=== PATIENT | male | born 2000 | race Caucasian/White ===

== ENCOUNTER 2023-01-28 11:17 | Outpatient (REF) | payer OTHER, SELFPAY | END 2023-01-28 11:18 | disposition home or self-care (01) | LOC: HO.HMGCX 11:17 | PROVIDERS: PCP Internal Medicine; Visit Provider Internal Medicine | DX: S93.401A Sprain of unspecified ligament of right ankle, initial encounter (principal); X58.XXXA Exposure to other specified factors, initial encounter; Y93.9 Activity, unspecified; Y92.9 Unspecified place or not applicable; Y99.9 Unspecified external cause status | CPT/HCPCS: 73610 ==

== ENCOUNTER 2023-08-01 15:48 | Outpatient (AMB) | payer OTHER, SELFPAY ==
--- NOTE | 2023-08-01 15:56 | MHC.PC.OV ---
Vital Signs 08/01/23 15:59 Height 5 ft 10 in Weight 269 lb BMI 38.6 BP 112/80 Blood Pressure Location Rt brachial Position Sitting Pulse 86 Pulse Source Pulse Oximeter Pulse Oximetry (%) 96 Oxygen Delivery Method Room Air Intake Visit Reasons: Annual PE Intake Note: Patient here for physical exam and would like to talk about ADHD which he was previously medicated for through a virtual psychiatrist with [facility] and would like to get on that again. Allergies No Known Allergies Allergy (Verified 08/01/23 16:01) Tobacco use date assessed: 08/01/23 Dental Screening Dental Screen Date: 08/01/23 Did you have a dental visit in the last 12 months?: Yes Did you have a dental problem in the last 6 months where you did not have access to dental care?: No Was dental information given to patient?: Patient has dentist HPI Annual PE HPI Details New pt is here for a PE. Will order labs. [facility] Surgical History History of lung surgery Family History Mother No problems noted. Father No problems noted. Social History Housing: House Alcohol intake: current Alcohol intake frequency: holidays/special occasions only Patient Tobacco Use Status: Never used Tobacco e-Cigarette/Vaping Use: Never Used service: No Current occupational status: employed Cognitive needs: No Hearing needs: No Vision needs: Yes Questionnaire PHQ-9 Over the last 2 weeks, how often have you been bothered by any of the following problems? 1. Little interest or pleasure in doing things: not at all 2. Feeling down, depressed, or hopeless: not at all 3. Trouble falling or staying asleep, or sleeping too much: not at all 4. Feeling tired or having little energy: several days 5. Poor appetite or overeating: not at all 6. Feeling bad about yourself - or that you are a failure or have let yourself or your family down: not at all 7. Trouble concentrating on things, such as reading the newspaper or watching television: nearly every day 8. Moving or speaking so slowly that other people could have noticed. Or the opposite - being so fidgety or restless that you have been moving around a lot more than usual: not at all 9. Thoughts that you would be better off or of hurting yourself in some way: not at all Total score: 4 Depression Screening Interpretation: Negative Depression Screening Done: Yes 47264 - PHQ-9 Billing: Yes Source: Developed by Drs. Armand Miller, Mayuri Candelario, Matt Roach and colleagues, with an educational buddy from [email or web address]. Thrive Questionnaire Date Thrive assessed: 01/30/21 I am a: Patient What is your living situation today?: I have a steady place to live Within the past 12 months, did the food you bought not last and you didn't have the money to get more?: Never true Within the past 12 months, did you worry whether your food would run out before you got money to buy more?: Never true Do you have trouble paying for medicines?: No Do you have trouble getting transportation to medical appointments?: No Do you have trouble paying your heating and electricity bill?: No Do you have trouble taking care of your child, family member or friend?: No Do you have trouble with day-to-day activities such as bathing, preparing meals, shopping, managing finances, etc.?: No Are you currently unemployed and looking for a job?: No Are you interested in more education?: No Currently or been in a relationship where the following occur: no concerns reported AUDIT C Alcohol Use Questionnaire (AUDIT-C) 1. How often do you have a drink containing alcohol?: 2-4 times a month 2. How many drinks containing alcohol do you have on a typical day when you are drinking?: 5 or 6 3. How often do you have six or more drinks on one occasion?: Less than monthly Total Score: 5 Score Reviewed/Action Taken: Yes BUSTER-7 AMB Questionnaire BUSTER-7 Date BUSTER - 7 assessed: 08/01/23 Feeling nervous, anxious, or on edge: 0 = Not at all Not being able to stop or control worryin = Not at all Worrying too much about different things: 0 = Not at all Trouble relaxin = Nearly every day Being so restless that it is hard to sit still: 3 = Nearly every day Becoming easily annoyed or irritable: 2 = More than half the days Feeling afraid as if something awful might happen: 0 = Not at all Total BUSTER-7 score (0-4 normal; 5-9 mild; 10-14 moderate; 15-21 severe): 8 Source: Developed by Drs. Armand Miller, Mayuri Candelario, Matt Roach and colleagues, with an educational buddy from [email or web address]. BUSTER-7 Assessment Billing BUSTER-7 Assessment Tool: BUSTER-7 Assessment 58735 Review of Systems Const Denies chills and Denies fever(s) Eyes Denies blurry vision ENT Denies vertigo, Denies dizziness and Denies sore throat Card Denies chest pain at rest, Denies chest pain with activity, Denies diaphoresis, Denies dyspnea and Denies dyspnea on exertion Resp Denies cough, Denies dyspnea, Denies dyspnea on exertion and Denies wheezing GI Denies abdominal pain, Denies melena, Denies hematochezia, Denies constipation, Denies diarrhea and Denies loose stools Denies hematuria Musc Denies numbness and Denies tingling Skin/Breast Denies lesions Neuro Denies vertigo, Denies dizziness, Denies numbness and Denies tingling Psych Denies anxiety, Denies depression, Denies homicidal ideation, Denies suicidal ideation and Denies other (substance abuse) Aller/Immun Denies wheezing Physical exam (Primary Care) Vital Signs: Last Vital Signs Pulse 86 08/01/23 15:59 BP 112/80 08/01/23 15:59 Pulse Ox 96 08/01/23 15:59 Oxygen Delivery Method Room Air 08/01/23 15:59 BMI result Body Mass Index 38.6 Tobacco/Smoking Status: Tobacco use Status Tobacco use date assessed 08/01/23 08/01/23 16:04 Patient Tobacco Use Status Never used Tobacco 08/01/23 15:59 e-Cigarette/Vaping Use Never Used 08/01/23 16:04 PHQ-9: PHQ-9 Score PHQ-9: Total score 4 08/01/23 16:18 Depression Screening Interpretation: Negative Thrive Assessment: Date of Thrive Assessment Date Thrive assessed 01/30/21 08/01/23 15:59 Currently or been in a relationship where the following occur: no concerns reported Const General: cooperative Nutritional Appearance: obese Orientation/consciousness: patient oriented x3 HENMT Head: Yes normal to inspection, Yes normocephalic and Yes atraumatic Ears: TM's normal bilaterally Eyes General: appearance normal, both eyes and all related structures Alignment and Position: alignment normal and position normal Neck Neck: Yes normal visual inspection and Yes no lymphadenopathy Thyroid: Thyroid normal Resp Effort & Inspection: normal respiratory effort Auscultation: clear to auscultation bilaterally Cardio Rate: regular rate Rhythm: regular rhythm Heart sounds: S1 normal heart sound present, S2 normal heart sound present and no murmurs GI Palpation (GI): Soft to palpation and nontender Auscultation: normal bowel sounds Male General Exam: Yes normal external exam Penis: normal penis Scrotum: scrotum normal, testes descended bilaterally and no inguinal hernias Testes: no testicular mass Skin Rashes: no rashes Neuro General: patient oriented x3, moves all extremities, no focal motor deficits and deep tendon reflexes 2+ bilaterally Romberg Test: Negative Psych Appearance: grossly normal Mental Status: mental status grossly normal Speech and movement: Normal speech and movement present Affect: normal affect Attitude: cooperative Thought process: Normal thought process present Thought content: Normal thought content present Insight: Good insight present (Psych) Judgement: Good judgement present (Psych) Assessment and Plan Assessment & Plan (1) Physical exam: Comment: 40 min reviewing chart eval pt and documenting Code(s): Z00.00 - Encounter for general adult medical examination without abnormal findings Plan: Labs ordered Plan The patient agreed to the use of a durable medical equipment repairer for this encounter. Scribed for LAY Gary by Roxy Harvey durable medical equipment repairer, on 08/01/2023 at 16:15 EST. Orders: Orders Complete Blood Count Auto Diff Today Z00.00 - Encounter for general adult medical examination without abnormal findings Comprehensive [place]. Panel Fast Today Z00.00 - Encounter for general adult medical examination without abnormal findings TSH reflex Free T4 Today Z00.00 - Encounter for general adult medical examination without abnormal findings UA CC w/rflx Micro + Cult Today Z00.00 - Encounter for general adult medical examination without abnormal findings Lipid Panel Today Z00.00 - Encounter for general adult medical examination without abnormal findings Coding Level of Care Code New Pt Prev Care 18-39yr(95724 Diagnoses Physical exam Z00.00 Additional Codes BUSTER-7 Assessment Billing - BUSTER-7 Assessment Tool: BUSTER-7 Assessment 97823 ([id number])
[2023-08-01 15:59] VITALS: BP 112/80; PULSE 86; O2SAT 96; BMI 38.6
== END 2023-08-01 16:28 | disposition home or self-care (01) ==
PROVIDERS: PCP Internal Medicine; Visit Provider Nurse Practitioner Family
DX: Z00.00 Encounter for general adult medical examination without abnormal findings (principal)
CPT/HCPCS: 99385

== ENCOUNTER 2023-08-16 06:01 | Outpatient (REF) | payer OTHER, SELFPAY ==
[2023-08-16 11:38] LABS: Appearance Urine Clear; Color Urine Yellow; Glucose Urine UA Negative (Negative); Leukocyte Esterase Urine Negative (Negative); Nitrite Urine Negative (Negative); Urine Blood Negative (Negative); Urine Ketones Negative (Negative); Urine Protein Negative (Neg-Trace)
[2023-08-16 11:44] LABS: MANUAL DIFF FLAG NO
[2023-08-16 11:57] LABS: Basophils Percent Auto 0.7 % (0-2); Eosinophils Absolute Auto 0.2 X10*3/uL (0.0-0.4); Eosinophils Percent Auto 2.9 % (0-4); Hematocrit 43.4 % (42.0-52.0); Hemoglobin 14.6 g/dl (14.0-18.0); Imm Gran Abs Auto 0.02 X10*3/uL (0.00-0.03); Imm Gran Pct Auto 0.3 % (0.0-0.4); Lymphocytes Absolute Auto 1.6 X10*3/uL (1.2-4.9); Lymphocytes Percent Auto 27.1 % (20-40); Mean Corpuscular HGB Conc 33.6 g/dl (31.0-36.0); Mean Corpuscular Hemoglobin 27.8 pg (27.0-33.0); Mean Corpuscular Volume 82.7 fL (80.0-98.0); Mean Platelet Volume 10.1 fL (9.4-12.4); Monocytes Absolute Auto 0.6 X10*3/uL (0.1-1.2); Monocytes Percent Auto 9.2 % (2-11); Neutrophils Absolute Auto 3.6 x10*3/uL (2.0-8.3); Neutrophils Percent Auto 59.8 % (45-73); Platelet Count 327 X10*3/uL (160-400); Red Blood Count 5.25 X10*6/uL (4.60-5.80); Red Cell Distribution Width 12.2 % (11.0-16.0)
[2023-08-16 12:17] LABS: Alanine Aminotransferase 25 U/L (0-40); Albumin Level 4.4 g/dL (3.5-5.0); Alkaline Phosphatase 47 U/L (39-117); Anion Gap 11 (12-20); Aspartate Amino Transferase 18 U/L (5-37); Bilirubin Total 0.5 mg/dL (0.0-1.0); Blood Urea Nitrogen 17 mg/dL (9-16); Calcium 9.6 mg/dL (8.4-10.2); Carbon Dioxide 28 mmol/L (22-29); Chloride 105 mmol/L (96-108); Cholesterol 181 mg/dL (<200); Estimated Glomerular Filt Rate > 60; Glucose Fasting 98 mg/dL (60-99); HDL Cholesterol 33 mg/dL (>40); LDL Cholesterol Calculated 125 mg/dL (<100); Potassium 3.8 mmol/L (3.3-5.1); Sodium 140 mmol/L (135-145); Total Protein 7.9 g/dL (6.5-8.0); Triglycerides 115 mg/dL (<150)
[2023-08-16 12:41] LABS: TSH reflex Free T4 1.38 uIU/mL (0.32-4.0)
== END 2023-08-16 06:02 | disposition home or self-care (01) ==
LOC: HO.HMGCLDS 06:01
PROVIDERS: PCP Nurse Practitioner Family; Visit Provider Nurse Practitioner Family
DX: Z00.00 Encounter for general adult medical examination without abnormal findings (principal)
CPT/HCPCS: 36415; 80053; 80061; 81003; 84443; 85025

== ENCOUNTER 2024-08-16 15:57 | Outpatient (AMB) | payer OTHER, SELFPAY ==
[2024-08-16 16:05] VITALS: BP 120/84; PULSE 81; RESP 12; TEMP 36.7; O2SAT 98; BMI 39.3
--- NOTE | 2024-08-16 16:05 | A.OFFPC_ITS ---
Vital Signs 08/16/24 16:05 Height 5 ft 10 in Weight 274 lb BMI 39.3 BP 120/84 Blood Pressure Location Rt brachial Position Sitting Respiration 12 Pulse 81 Pulse Source Pulse Oximeter Temp 98.0 F Temp Source Oral Pulse Oximetry (%) 98 Oxygen Delivery Method Room Air Intake Visit Reasons: PE Intake Note: pt is here for PE Emergency Department Nurse Required: No Accompanied by: Self / Same As Patient Allergies No Known Allergies Allergy (Verified 08/16/24 16:05) Medication List - Last Reconciled 08/16/24 by KRISSY Watkins No Known Home Meds Tobacco use date assessed: 08/16/24 Dental Screening Dental Screen Date: 08/16/24 Did you have a dental visit in the last 12 months?: Yes Did you have a dental problem in the last 6 months where you did not have access to dental care?: No Was dental information given to patient?: Patient has dentist HPI PE HPI Details History of Present Illness The patient is a 24-year-old male presenting with a request for a vasectomy and concerns about a lipoma. The patient has already fathered two children and expressed interest in permanent contraception. Additionally, the patient noticed the development of a lipoma located superior to his right knee on the anterior aspect. The lipoma is described as semimovable and approximately marble-sized. The patient reports tenderness when the knee is flexed, and the mass appears to be increasing in size over time. There is no associated erythema around the lesion. The patient did not mention any prior interventions or medical evaluations for the lipoma until today's visit. Health Maintenance - Discussion regarding weight loss and i nterest in GLP-1 agonists for obesity management. - BMI assessed at 39.3, indicating obesi ty. Social History - Family planning: Patient has two child homer and is seeking a vasectomy. - Nutrition and weight management: Expre ssed interest in weight loss medications like GLP-1 agonists. Review of Systems - Cardiovascular: Denies chest pain. - Respiratory: Denies shortness of breat h. - Psychiatric: Denies anxiety, depressio n, suicidal ideation, homicidal ideation. - Gastrointestinal: Denies blood in stoo l, constipation, diarrhea. - Genitourinary: Denies any urinary issu es. Physical Exam General: Cooperative, healthy appearing, comfortable, no acute distress and well developed, but accordingly obese with a BMI of 39.3 Orientation: Patient oriented x3 Limitations: No limitations Head: Normal to inspection Ears: Hearing grossly normal bilaterally Nose: Normal external nose present Face and sinus: Normal facial exam Eyes: Appearance normal, both eyes and all related structures Neck: Normal visual inspection and Yes full ROM Respiratory: Normal respiratory effort and able to speak in complete sentences. Clear to auscultation bilaterally Cardiovascular: Regular rate and rhythm. Normal S1 and S2 GI: Normal to inspection. Soft to palpation and nontender Skin: No rashes or lesions noted Neuro: Patient oriented x3 Extremities: Normal to inspection except for a lipoma just superior to the right knee anterior aspect, semi-movable, approximately marble-sized, with tenderness reported when the knee is flexed. No surrounding erythema noted. Results Plan - Referral to general surgery for evalua tion and potential removal of the lipoma. - Referral for vasectomy as the patient has expressed a firm decision to proceed with permanent contraception. - Discussed potential weight management options, including contacting the insurance company for coverage of GLP-1 agonists. If coverage is confirmed, a prescription will be provided. Patient was informed and verbally consented to the use of an ambient scribe for clinic note documentation during this visit. Discussion Notes The patient and I discussed the presence of a lipoma that is increasing in size and causing discomfort upon knee flexion. I will refer him to a general surgeon for further evaluation and removal of the lipoma. The patient also expressed a desire for a vasectomy after fathering two children, and I will facilitate a suitable referral. We discussed his obesity with a BMI of 39.3, and his interest in GLP-1 agonists for weight loss was noted. I advised him to confirm insurance coverage for these medications. Throughout the consultation, the patient denied symptoms such as chest pain, shortness of breath, psychiatric symptoms, and gastrointestinal issues. Patient Instructions - Follow up with the general surgeon for evaluation and potential removal of the lipoma. - Anticipate referral for a vasectomy co nsultation. - Contact your insurance provider to con firm coverage of GLP-1 agonists for weight management. - Maintain current activity levels and c onsider lifestyle changes for weight management. [facility] Surgical History History of lung surgery Family History Mother No problems noted. Father No problems noted. 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 1. Little interest or pleasure in doing things: not at all 2. Feeling down, depressed, or hopeless: not at all 3. Trouble falling or staying asleep, or sleeping too much: not at all 4. Feeling tired or having little energy: not at all 5. Poor appetite or overeating: not at all 6. Feeling bad about yourself - or that you are a failure or have let yourself or your family down: not at all 7. Trouble concentrating on things, such as reading the newspaper or watching television: not at all 8. Moving or speaking so slowly that other people could have noticed. Or the opposite - being so fidgety or restless that you have been moving around a lot more than usual: not at all 9. Thoughts that you would be better off or of hurting yourself in some way: not at all Total score: 0 Depression Screening Interpretation: Negative Depression Screening Done: Yes 16474 - PHQ-9 Billing: Yes Source: Developed by Drs. Armand Miller, Mayuri Candelario, Matt Roach and colleagues, with an educational buddy from [employer]. Thrive Questionnaire Date Thrive assessed: 08/16/24 I am a: Patient What is your living situation today?: I have a steady place to live Within the past 12 months, did the food you bought not last and you didn't have the money to get more?: Never true Within the past 12 months, did you worry whether your food would run out before you got money to buy more?: Never true Do you have trouble paying for medicines?: No Do you have trouble getting transportation to medical appointments?: No Do you have trouble paying your heating and electricity bill?: No Do you have trouble taking care of your child, family member or friend?: No Do you have trouble with day-to-day activities such as bathing, preparing meals, shopping, managing finances, etc.?: No Are you currently unemployed and looking for a job?: No Are you interested in more education?: No Please select the resources that you would like help with: None Currently or been in a relationship where the following occur: No concerns reported THRIVE Score: 0 AUDIT C Alcohol Use Questionnaire (AUDIT-C) 1. How often do you have a drink containing alcohol?: 2-4 times a month 2. How many drinks containing alcohol do you have on a typical day when you are drinking?: 1 or 2 3. How often do you have six or more drinks on one occasion?: Never Total Score: 2 Score Reviewed/Action Taken: Yes BUSTER-7 AMB Questionnaire BUSTER-7 Date BUSTER - 7 assessed: 08/16/24 Feeling nervous, anxious, or on edge: 0 = Not at all Not being able to stop or control worryin = Not at all Worrying too much about different things: 0 = Not at all Trouble relaxin = Not at all Being so restless that it is hard to sit still: 0 = Not at all Becoming easily annoyed or irritable: 0 = Not at all Feeling afraid as if something awful might happen: 0 = Not at all Total BUSTER-7 score (0-4 normal; 5-9 mild; 10-14 moderate; 15-21 severe): 0 Source: Developed by Drs. Armand Miller, Mayuri Candelario, Matt Roach and colleagues, with an educational buddy from [employer]. BUSTER-7 Assessment Billing BUSTER-7 Assessment Tool: BUSTER-7 Assessment 33619 Physical exam (Primary Care) Vital Signs: Last Vital Signs Temp 98.0 F 08/16/24 16:05 Pulse 81 08/16/24 16:05 Resp 12 08/16/24 16:05 BP 120/84 08/16/24 16:05 Pulse Ox 98 08/16/24 16:05 Oxygen Delivery Method Room Air 08/16/24 16:05 BMI result Body Mass Index 39.3 Tobacco/Smoking Status: Tobacco use Status Tobacco use date assessed 08/16/24 08/16/24 16:13 Patient Tobacco Use Status Never used Tobacco 08/16/24 16:06 e-Cigarette/Vaping Use Never Used 08/16/24 16:06 PHQ-9: PHQ-9 Score PHQ-9: Total score 0 08/16/24 16:13 Depression Screening Interpretation: Negative Thrive Assessment: Date of Thrive Assessment Date Thrive assessed 08/16/24 08/16/24 16:06 Currently or been in a relationship where the following occur: No concerns reported Coding Level of Care Code Est Pt Prev Care 18-39y(76885) Diagnoses Vasectomy evaluation Z30.09 Lipoma D17.9 Physical exam Z00.00 Additional Codes BUSTER-7 Assessment Billing - BUSTER-7 Assessment Tool: BUSTER-7 Assessment 45151 ([id number]) PHQ-9 - 57456 - PHQ-9 Billing: Yes ([id number]) Assessment & Plan Assessment & Plan (1) Vasectomy evaluation: Code(s): Z30.09 - Encounter for other general counseling and advice on contraception Category: Medical (2) Lipoma: Code(s): D17.9 - Benign lipomatous neoplasm, unspecified Category: Medical (3) Physical exam: Code(s): Z00.00 - Encounter for general adult medical examination without abnormal findings Category: Medical Plan . Orders: Orders Comprehensive [place]. Panel Fast Today Z00.00 - Encounter for general adult medical examination without abnormal findings UA CC w/rflx Micro + Cult Today Z00.00 - Encounter for general adult medical examination without abnormal findings Complete Blood Count Auto Diff Today Z00.00 - Encounter for general adult medical examination without abnormal findings TSH reflex Free T4 Today Z00.00 - Encounter for general adult medical examination without abnormal findings Lipid Panel Today Z00.00 - Encounter for general adult medical examination without abnormal findings Referrals Urology Referral Z30.09 - Encounter for other general counseling and advice on contraception General Surgery Referral D17.9 - Benign lipomatous neoplasm, unspecified
== END 2024-08-16 16:53 | disposition home or self-care (01) ==
PROVIDERS: PCP Nurse Practitioner Family; Visit Provider Nurse Practitioner Family
DX: Z00.00 Encounter for general adult medical examination without abnormal findings (principal); D17.9 Benign lipomatous neoplasm, unspecified

== ENCOUNTER → 2024-08-16 15:57 | Outpatient (BNVA) | payer OTHER, SELFPAY | PROVIDERS: PCP Nurse Practitioner Family; Visit Provider Nurse Practitioner Family | DX: Z00.00 Encounter for general adult medical examination without abnormal findings (principal); D17.9 Benign lipomatous neoplasm, unspecified | CPT/HCPCS: 96127 ==

== ENCOUNTER 2024-08-30 06:04 | Outpatient (REF) | payer OTHER, SELFPAY ==
[2024-08-30 10:02] LABS: MANUAL DIFF FLAG NO
[2024-08-30 10:03] LABS: Appearance Urine Clear; Color Urine Yellow; Glucose Urine UA Negative (Negative); Leukocyte Esterase Urine Negative (Negative); Nitrite Urine Negative (Negative); PH 6.5 (5.0-9.0); Specific Gravity - Urine >= 1.030 (1.005-1.025); Urine Blood Negative (Negative); Urine Ketones Negative (Negative); Urine Protein Negative (Neg-Trace)
[2024-08-30 10:07] LABS: Basophils Absolute Auto 0.1 X10*3/uL (0.0-0.2); Basophils Percent Auto 1.1 % (0-2); Eosinophils Absolute Auto 0.1 X10*3/uL (0.0-0.4); Eosinophils Percent Auto 2.3 % (0-4); Hematocrit 43.9 % (42.0-52.0); Hemoglobin 14.8 g/dl (14.0-18.0); Imm Gran Abs Auto 0.01 X10*3/uL (0.00-0.03); Imm Gran Pct Auto 0.2 % (0.0-0.4); Lymphocytes Absolute Auto 1.4 X10*3/uL (1.2-4.9); Lymphocytes Percent Auto 22.5 % (20-40); Mean Corpuscular HGB Conc 33.7 g/dl (31.0-36.0); Mean Corpuscular Hemoglobin 27.2 pg (27.0-33.0); Mean Corpuscular Volume 80.6 fL (80.0-98.0); Mean Platelet Volume 9.7 fL (9.4-12.4); Monocytes Absolute Auto 0.5 X10*3/uL (0.1-1.2); Monocytes Percent Auto 8.9 % (2-11); Platelet Count 361 X10*3/uL (160-400); Red Blood Count 5.45 X10*6/uL (4.60-5.80); Red Cell Distribution Width 12.5 % (11.0-16.0); White Blood Count 6.1 X10*3/uL (4.8-10.8)
[2024-08-30 10:27] LABS: Alanine Aminotransferase 37 U/L (0-40); Albumin Level 4.5 g/dL (3.5-5.0); Alkaline Phosphatase 53 U/L (39-117); Anion Gap 13 (12-20); Aspartate Amino Transferase 25 U/L (5-37); Bilirubin Total 0.7 mg/dL (0.0-1.0); Blood Urea Nitrogen 17 mg/dL (9-16); Calcium 9.8 mg/dL (8.4-10.2); Carbon Dioxide 21 mmol/L (22-29); Chloride 108 mmol/L (96-108); Cholesterol 205 mg/dL (<200); Estimated Glomerular Filt Rate > 60; Glucose Fasting 91 mg/dL (60-99); HDL Cholesterol 30 mg/dL (>40); LDL Cholesterol Calculated 142 mg/dL (<100); Potassium 3.8 mmol/L (3.3-5.1); Sodium 138 mmol/L (135-145); Total Protein 8.3 g/dL (6.5-8.0); Triglycerides 166 mg/dL (<150)
[2024-08-30 10:43] LABS: TSH reflex Free T4 1.49 uIU/mL (0.32-4.0)
== END 2024-08-30 06:05 | disposition home or self-care (01) ==
LOC: HO.HMGCLDS 06:04
PROVIDERS: PCP Nurse Practitioner Family; Visit Provider Nurse Practitioner Family
DX: Z00.00 Encounter for general adult medical examination without abnormal findings (principal)
CPT/HCPCS: 36415; 80053; 80061; 81003; 84443; 85025

== ENCOUNTER 2024-09-11 15:21 | Outpatient (AMB) | payer OTHER, SELFPAY ==
--- NOTE | 2024-09-11 15:22 | MHC.OFFVIS ---
Vital Signs 09/11/24 15:30 Height 5 ft 10 in Weight 273 lb BMI 39.2 BP 162/91 H Blood Pressure Location Lt brachial Position Sitting Pulse 58 Intake Visit Reasons: Lipoma~ Rt knee Intake Note: Patient is seen in office for evaluation and treatment of a lipoma of the right knee. Pt c/o: onset 7 yrs, increase in size, pain at times, feels pushing on the knee, denies redness, swelling, infection, discharge Manager Of Data Required: No Accompanied by: Self / Same As Patient Allergies No Known Allergies Allergy (Verified 09/11/24 15:29) Medication List - Last Reconciled 09/11/24 by John Bingham MD semaglutide (weight loss) 0.5 mg (0.5 mL) subcut QWEEK HPI Comments Details: 24-year-old male patient presenting for evaluation of a soft tissue mass located above his right knee. The lump has been present for several years and is gradually increasing in size. He reports some discomfort especially when kneeling as the lump puts pressure on his knee. He denies any bleeding, discharge, skin changes or other associated symptoms. He has requested excision of this lesion. [facility] Surgical History History of lung surgery Family History Mother No problems noted. Father No problems noted. 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 Cognitive needs: No Hearing needs: No Vision needs: Yes Review of Systems Const All systems reviewed & are unremarkable except as noted in HPI and below Physical Exam Const General: no acute distress Nutritional Appearance: well nourished Orientation/consciousness: patient oriented x3 Limitations: no limitations HEENT Head: Yes normocephalic and Yes atraumatic Resp Effort & Inspection: normal respiratory effort, no audible wheezes, no cough and no respiratory distress Skin Other: Warm, dry, no rashes Neuro General: patient oriented x3 Extrem Other: Right leg with 2-3 cm soft tissue mass located in the subdermal location approximately 3 cm above the knee as noted below. No overlying skin changes, no fluctuance, no tenderness to palpation Upper/lower leg/hip images: 1. Site of palpable lump above right knee Assessment & Plan Assessment & Plan (1) Lipoma: Code(s): D17.9 - Benign lipomatous neoplasm, unspecified Category: Medical Qualifiers: Lipoma location: lower extremity Laterality: right Qualified Code(s): D17.23 - Benign lipomatous neoplasm of skin and subcutaneous tissue of right leg Plan 24-year-old male patient presenting a soft tissue mass located just above the right knee wishes gradually increasing in size and causing some discomfort when pressure is applied. On examination there is a soft tissue mass which may either be a lipoma or an epidermal inclusion cyst measuring approximately 2-3 cm in diameter. We discussed the options for excision including as a minor surgery under local anesthesia versus as a short-stay surgery sedation. He is agreeable to short-stay surgery we will schedule the procedure at his convenience. Coding Level of Care Code New Pt Level 4 (59780) Diagnoses Lipoma of right lower extremity D17.23 Lipoma location: lower extremity Laterality: right
[2024-09-11 15:30] VITALS: BP 162/91; PULSE 58; BMI 39.2
--- OUTSIDE RECORDS SUMMARY | 2024-09-11 16:13 | XMS_ITS | Encounter Summary ---
Author Organization [facility] Address [address] [place] [id number] Phone Care Team Providers Care Order To Delivery Supervisor Name Role Phone Rory Mercer MD Primary Care Provider [phone] Encounter Details Date Type Department Care Team (Late st Contact Info) Description 12/04/2010 Conversion Encounter [facility] [address] [place] [address] Social History Tobacco Use Types Packs/Day Years Used Date Smoking Tobacco: Never Assessed Sex and Gender Information Value Date Recorded Sex Assigned at Not on file Legal Sex Male 6:33 PM EDT Gender Identity Not on file Sexual Orientation Not on file documented as of this encounter Plan of Treatment Not on file documented as of this encounter Visit Diagnoses Not on filedocumented in this encounter Care Teams Order To Delivery Supervisor Relationship Specialty Start Date End Date Rory Mercer MD [address] [place] [address] PCP - General 11/30/17 documented as of this encounter
--- OUTSIDE RECORDS SUMMARY | 2024-09-11 16:13 | XMS_ITS | Clinical Summary ---
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 Rest and elevate the affected painful area. Apply cold compresses intermittently as needed. As pain recedes, begin normal activities slowly as tolerated. Call if symptoms persist. Poison xiomara 06/30/2020 Assessment & Plan (06/30/2020 4:03 PM EST): Exam and history consistent with poison xiomara exposure and associated dermatitis. Significant exposure and symptoms. Will treat with a course of oral steroids. Extrinsic asthma 11/22/2016 Overview (12/29/2017): Asthma (493.00) Onset: 11/22/2016 Added by: Rory Mercer Sebaceous cyst 08/30/2016 Overview (12/29/2017): Sebaceous cyst (706.2) Onset: 08/30/2016 Added by: Rory Mercer Other acne 05/01/2014 Overview (12/29/2017): Acne (706.1) Onset: 05/01/2014 Added by: Mahnaz Underwood Immunizations Immunization Administration Dates Next Due DTaP 5 02/17/2004, 0,1999, 999,1999 Hep A, ped/adol 12/05/2014 Hep B, ped/adol 04/11/2000,1999,1999 Hib (PRP-T) 04/11/2000, 0,1999, 999 IPV 02/17/2004, 0,1999, 999 MMR 02/17/2004,01/18/2000 Meningococcal Conj (Menactra) MCV4P 05/13/2010 Pneumococcal Conjugate 07/20/2000,04/11/2000 Tdap 05/13/2010 Varicella 05/13/2010,01/18/2000 Family History Medical History Relation Name Comments No Known Problems Father Armani Diabetes Maternal Grandfather Diabetes Maternal Grandmother No Known Problems Mother Allegra Diabetes Paternal Grandfather Diabetes Paternal Grandmother Depression Sister 1 Harriett Relation Name Status Comments Father Armani Alive Maternal Grandfather Maternal Grandmother Mother Allegra Alive Paternal Grandfather Paternal Grandmother Sister 1 Harriett Alive Sister 2 Keeley Alive Social History Tobacco Use Types Packs/Day Years Used Date Smoking Tobacco: Never Comments:Never Smoker Alcohol Use Standard Drinks/Week Comments Never 0 (1 standard drink = 0.6 oz pur e alcohol) Sex and Gender Information Value Date Recorded Sex Assigned at Not on file Legal Sex Male 6:33 PM EDT Gender Identity Not on file Sexual Orientation Not on file Last Filed Vital Signs Vital Sign Reading Time Taken Comments Blood Pressure 122/80 06/03/2021 11:07 AM EST Pulse 80 10/19/2018 4:08 PM EDT Temperature 36.6 ??C (97.9 ??F) 06/03/2021 11:[address] Respiratory Rate - - Oxygen Saturation 97% 09/12/2019 4:37 PM EST Inhaled Oxygen Concentration - - Weight 127 kg (280 lb) 06/03/2021 11:07 AM EST Height 174.6 cm (5' 8.75 ) 06/03/2021 11:[address] Body Mass Index 41.65 06/03/2021 11:07 AM EST Plan of Treatment Health Maintenance Due Date Last Done Comments HPV Vaccines (1 - Male 3-dose series) 2014 Hepatitis A Vaccines (2 of 2 - 2-dose series) 06/07/2015 12/05/2014 DTaP,Tdap,and Td Vaccines (7 - Td or Tdap) 05/13/2020 05/13/2010, 02/17/2004, 07/20/2000, Additional history exists Influenza Vaccines (#1) 2024 COVID-19 Vaccine ( season) 2024 03/03/2021, 02/09/2021 HIB Vaccines Completed 04/11/2000, 01/2000, 1999, Additional history exists Hepatitis B Vaccines Completed 04/11/2000, 1999, 1999 Pneumococcal Vaccine Completed 07/20/2000, 04/11/20 00 IPV Vaccines Completed 02/17/2004, 06/25, 1999, Additional history exists MMR Vaccines Completed 02/17/2004, 01/18/2000 Meningococcal Vaccine Aged Out 05/13/2010 No alcon анна eligible based on patient's age to complete this topic Varicella Vaccines Completed 05/13/2010, 01/18/2000 Men B Vaccine Aged Out No longer elig ible based on patient's age to complete this topic Insurance [facility] Care Teams Hand Finisher Relationship Specialty Start Date End Date Rory Mercer MD [address] [place] [address] [place] [address] PCP - General 11/30/17
== END 2024-09-11 15:36 | disposition home or self-care (01) ==
PROVIDERS: PCP Nurse Practitioner Family; Referring Provider Nurse Practitioner Family; Visit Provider Surgery
DX: D17.23 Benign lipomatous neoplasm of skin and subcutaneous tissue of right leg (principal)
CPT/HCPCS: 99204

== ENCOUNTER → 2024-09-11 15:21 | Outpatient (BNVA) | payer OTHER, SELFPAY | PROVIDERS: PCP Nurse Practitioner Family; Referring Provider Nurse Practitioner Family; Visit Provider Surgery ==

== ENCOUNTER 2024-10-19 14:49 | Outpatient (AMB) | payer OTHER, SELFPAY ==
--- NOTE | 2024-10-19 14:57 | A.OFFVIS_ITS ---
Intake Visit Reasons: vasectomy consult Intake Note: New patient presents today for initial visit for a vasectomy consult Urology Medication:none Blood Thinner:none Antibiotic Allergies:none Allergies No Known Allergies Allergy (Verified 10/19/24 15:03) Medication List - Last Reconciled 10/19/24 by Reva Amaya MD semaglutide (weight loss) 1 mg (0.5 mL) subcut QWEEK HPI Comments Details: Aren is a 24 year old male. He states he has 2 children. Vasectomy procedure was discussed at length with the patient. He was informed that vasectomy is a safe, permanent, and effective form of control but there are risks involved. It may involve risk of hematoma, procedure failure which is rare, sperm granuloma which may cause mild pain, and congestion which may cause sense of pressure and generally resolves after several weeks. 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 [facility] Surgical History History of lung surgery Family History Mother No problems noted. Father No problems noted. 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 Cognitive needs: No Hearing needs: No Vision needs: Yes Review of Systems Const All systems reviewed & are unremarkable except as noted in HPI and below Reports no additional complaints Eyes Reports no additional complaints ENT Reports no additional complaints Card Reports no additional complaints Resp Reports no additional complaints GI Reports no additional complaints Reports as per HPI Musc Reports no additional complaints Skin/Breast Reports system reviewed and no additional complaints, except as documented Neuro Reports no additional complaints Psych Reports no additional complaints Endo Reports no additional complaints Nathan/Lymph Reports no additional complaints Aller/Immun Reports no additional complaints Physical Exam Const General: healthy appearing, no acute distress and well developed Orientation/consciousness: patient oriented x3 HEENT Head: Yes normocephalic and Yes atraumatic Eyes Conjunctivae: conjunctivae normal Neck Neck: Yes normal visual inspection Chest Chest palpation & inspection: normal inspection of the chest Resp Effort & Inspection: normal respiratory effort GI Inspection: Yes normal to inspection Neuro General: patient oriented x3 Psych Appearance: grossly normal Affect: normal affect Assessment & Plan Assessment & Plan (1) Vasectomy evaluation: Code(s): Z30.09 - Encounter for other general counseling and advice on contraception Category: Medical (2) Anxiety about health: Code(s): R45.89 - Other symptoms and signs involving emotional state Category: Medical Plan Schedule Bilateral vasectomy under local with Dr. White Patient Instructions: The patient had an opportunity to ask questions regarding treatment plan. The patient expressed understanding and agreement with the above treatment plan. The patient is aware they should contact our office by phone for worsening of their current condition or the appearance of new symptoms. Compliance is encouraged with any medications and followup testing that is ordered. It is a privilege to be allowed the opportunity to participate in the urologic care of your patient. If you have any questions or concerns regarding treatment for the above conditions please do not hesitate to contact me. The office telephone contact is [phone]. This note is constructed in part using voice recognition software. While every effort has been made to ensure accuracy non licensed nuclear plant operator errors may have been included. Yours sincerely, Reva Amaya MD Coding Level of Care Code New Pt Level 4 (69468) Diagnoses Vasectomy evaluation Z30.09 Anxiety about health R45.89
== END 2024-10-19 15:24 | disposition home or self-care (01) ==
LOC: HO.HUSH 14:50
PROVIDERS: PCP Nurse Practitioner Family; Visit Provider Urology
DX: Z30.09 Encounter for other general counseling and advice on contraception (principal); R45.89 Other symptoms and signs involving emotional state
CPT/HCPCS: 99204

== ENCOUNTER 2025-02-08 14:35 | Outpatient (AMB) | payer OTHER, SELFPAY ==
--- OUTSIDE RECORDS SUMMARY | 2025-02-08 14:38 | XMS_ITS | Clinical Summary ---
Author Organization [facility] Address [address] [place] [address] Phone Care Team Providers Care General Service Officer Name Role Phone Rory Mercer MD Primary Care Provider [phone] Allergies Active Allergy Reactions Criticality Noted Date [...] 80 10/19/2018 4:08 PM EDT Temperature 36.6 C (97.9 F) 06/03/2021 11:07 AM EST Respiratory Rate - - Oxygen Saturation 97% [...] 05/13/2020 05/13/2010, 02/17/2004, 07/20/2000, Additional history exists COVID-19 Vaccine ( - season) 2024 03/03/2021, 02/09/2021 Influenza Vaccines (#1) 2025 HIB Vaccines Completed 04/11/2000, 01/2000, 1999, Additional [...] patient's age to complete this topic Insurance [facility] Care Teams General Service Officer Relationship Specialty Start Date End Date Rory Mercer MD [facility] [place] [address] PCP - General 11/30/17
--- NOTE | 2025-02-08 14:40 | MHC.OFFVIS ---
Intake Visit Reasons: vasectomy Intake Note: Patient is present for VASECTOMY Urology Medication:TRAMADOL,DIAZEPAM Antibiotic Allergy:NONE Blood Thinner:NONE Outdoor Power Equipment Mechanic Required: No Allergies No Known Allergies Allergy (Verified 02/08/25 14:44) HPI Comments Details: Aren is a 24 year old male. He states he has 2 children. Vasectomy procedure was discussed at length with the patient. He was informed that vasectomy is a safe, permanent, and effective form of control but there are risks involved. It may involve risk of hematoma, procedure failure which is rare, sperm granuloma which may cause mild pain, and congestion which may cause sense of pressure and generally resolves after several weeks. 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 Vasectomy today [facility] Surgical History History of lung surgery Family History Mother No problems noted. Father No problems noted. 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 Cognitive needs: No Hearing needs: No Vision needs: Yes Review of Systems Const Denies chills and Denies fever(s) Card Reports no additional complaints and Denies syncope Resp Denies cough GI Denies abdominal pain and Denies heartburn Reports as per HPI and Denies change in libido Neuro Denies syncope Psych Denies change in libido Endo Denies change in libido Physical Exam Const General: cooperative, healthy appearing, comfortable and no acute distress Orientation/consciousness: patient oriented x3 HEENT Face and sinus: Yes normal facial exam Mouth: moist mucous membranes Neck Neck: Yes normal visual inspection, Yes full ROM and Yes trachea midline Chest Chest palpation & inspection: normal inspection of the chest Resp Effort & Inspection: normal respiratory effort, able to speak in complete sentences and no respiratory distress GI Inspection: Yes normal to inspection Back/Spine/Pelvis Cervical Spine: normal cervical lordosis Thoracic/Lumbar Spine: thoracic and lumbar spine normal to inspection Skin General skin exam: no rashes or lesions noted Neuro General: patient oriented x3, gait normal, tone normal and moves all extremities Extrem General: Yes normal to inspection and Yes capillary refill normal Office Procedures Vasectomy Details: Preoperative diagnosis: Anxiety regarding Postoperative diagnosis: Anxiety regarding unplanned Procedure: Bilateral vasectomy Informed consent had been completed. Preoperative and postoperative instructions were provided to the patient. The patient has transportation to home identified at the completion of the procedure. Anti-anxiolytic prescription medication had been taken after consent verification and all questions answered. Tylenol with Codeine pain medication was also provided. The penis was elevated using a rubber band that was attached to the patient's shirt. Both vasa were palpated through the skin using a 3 finger technique and the penoscrotal junction was prepped with Betadine. After Betadine application the left vas was elevated using a 3 finger grasping technique. 1% lidocaine was used to create a subdermal bubble. Further anesthetic was then advanced using the 25-gauge needle along the vasa in a proximal fashion. Approximately 2 minutes were allowed to for local anesthetic uptake. Using the sharp spreading instrument the scrotal skin was spread longitudinally in line with the vasa until the subdermal layer had been divided. The vasa was then elevated from the scrotum using a ring clamp. Care was taken to elevate the superior portion of the vasa by rotating the ring clamp in a caudad direction. The battery powered cautery was used to divide the vasal sheath in a longitudinal direction on the exposed vasa and to strip the vasal sheath from the vasa. A 2nd narrower ring clamp was placed on the exposed vas and used to lift the vas from the vasal sheath. so it grasped the elevated vas. The cautery was used to divide vasal attachments and allow full exposure of a small loop of vasa. The sharp spreading instrument was then used to create a tunnel under the vasa and spread to allow the blood vessels of the vasa to retract from the vasa. A mosquito clamp was placed on the proximal portion of the vas. The battery-powered cautery was used to make a partial division in the proximal vas and then inserted in order to cauterize the proximal end of the vas. This was then cut and allowed to retract into the vasal sheath. The mosquito was then used to twist the vasa 180 degrees creating a fascial interposition. Using a 4-0 chromic suture the fascial interposition was sutured closed. The distal portion of the vas was then cut in order to obtain a segment of vasa. The vasa were allowed to retract back into the scrotum. A small snap was then used to approximate the skin edges and allow hemostasis without placement of a suture. A similar procedure was repeated on the right side. He tolerated the procedure well. Triple antibiotic was applied. A gauze was applied. An ice pack was applied to assist with minimizing swelling. Postoperative instructions were confirmed. He understands the need to continue to use control methods. A semen sample should be brought for inspection under the microscope in 10-12 weeks. CPT 06680 Vasectomy performed by: Philip White Informed consent given: Yes Informed consent signed: Yes Time out checklist: patient, procedure, site marked/identified, positioning of patient, supplies available, allergies confirmed and team agrees on procedure Preoperative sedation: Yes Anesthetic used: other Specimens: vas segments not sent to pathology 81977 - Vasectomy Office Meds lidocaine (PF) 10 mg/mL (1 %) injection solution Performing Provider: Philip White MD Performing Location: [facility] Administered by: Ivette Lopez RN on 02/08/25 15:09 Dose Route Admin Location Dispensed Lot Number Expiration Date NDC Oil Field Worker 2 mL Infiltration 10 mL Total Dispensed Waste 10 mL 0 % Assessment & Plan Assessment & Plan (1) Anxiety about health: Code(s): R45.89 - Other symptoms and signs involving emotional state Category: Medical Plan Procedure performed Will use fellows mail order kit Orders: Orders AMB Vasectomy Today R45.89 - Other symptoms and signs involving emotional state Patient Instructions: This note is constructed using voice recognition software. While every effort has been made to ensure accuracy signal mechanic errors may have been included. Imaging studies, laboratory and physical exam results were discussed and reviewed in detail. No major barriers to patient understanding were identified. An opportunity to ask questions regarding the treatment plan was provided. All questions were answered. The patient expressed understanding and agreement with the above treatment plan. The patient is aware they should contact our office by phone for worsening of their current condition or the appearance of new urologic symptoms. Compliance is encouraged with any medications and followup testing that is ordered. It is a privilege to participate in the urologic care of your patient. If you have any questions or concerns regarding treatment for the above conditions, or other urologic issues, please do not hesitate to contact me. The office telephone contact is [phone]. Sincerely, Dr Philip White MD, [facility] - Urology Compassionate Specialist Care for the Genitourinary System Coding Level of Care Code Procedure Only Diagnoses Anxiety about health R45.89 CPT Codes Office Procedure - CPT: 69102 - Vasectomy ([id number])
== END 2025-02-08 15:43 | disposition home or self-care (01) ==
LOC: HO.HUSH 14:36
PROVIDERS: PCP Nurse Practitioner Family; Visit Provider Urology
DX: Z30.2 Encounter for sterilization (principal); R45.89 Other symptoms and signs involving emotional state
CPT/HCPCS: 55250

== ENCOUNTER → 2025-02-08 14:35 | Outpatient (BNVA) | payer OTHER, SELFPAY | PROVIDERS: PCP Nurse Practitioner Family; Visit Provider Urology | DX: Z30.2 Encounter for sterilization (principal); R45.89 Other symptoms and signs involving emotional state | CPT/HCPCS: 55250; J2003 ==

== ENCOUNTER 2025-06-18 12:25 | Outpatient (REF) | payer OTHER, SELFPAY ==
[2025-06-18 23:17] LABS: CT PCR Urine NOT DETECTED (Not Detect.); NG PCR Urine NOT DETECTED (Not Detect.)
== END 2025-06-18 12:26 | disposition home or self-care (01) ==
LOC: HO.LNP 12:25
PROVIDERS: PCP Nurse Practitioner Family; Visit Provider Physician Assistant Medical
DX: Z20.2 Contact with and (suspected) exposure to infections with a predominantly sexual mode of transmission (principal); N50.811 Right testicular pain
CPT/HCPCS: 87491; 87591

== ENCOUNTER 2025-06-18 12:25 | Outpatient (AMB) | payer OTHER, SELFPAY ==
[2025-06-18 12:28] VITALS: BP 104/62; PULSE 76; TEMP 36.8; O2SAT 100; BMI 34.4
--- NOTE | 2025-06-18 12:28 | AM.OFFWIN_ITS ---
Intake Vital Signs 06/18/25 12:28 Height 5 ft 10 in Weight 240 lb BMI 34.4 BP 104/62 Blood Pressure Location Lt brachial Position Sitting Pulse 76 Pulse Source Pulse Oximeter Temp 98.3 F Temp Source Oral Pulse Oximetry (%) 100 Oxygen Delivery Method Room Air Intake Visit Reasons: EP Testicular pain Intake Note: pt presents with right testicular pain on/off with physical exertion for 4 days now-denies any urinary tract issues, denies back pain, denies and abdominal or pubic region pains. pt reports pshx of vasectomy in January 2025. Patient Tobacco Use Status: Never used Tobacco Allergies No Known Allergies Allergy (Verified 06/18/25 12:32) Do you need a note to return to daycare/school/sports/work: Yes HPI HPI Comments History of Present Illness Details History of Present Illness - The patient is a 25-year-old individua l presenting with right testicular pain. - The pain began four days ago, exacerba glenda by physical activity, especially lifting, and subsides overnight. - Pain is a sharp pain and gets worse th roughout the day. 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 - No history of abdominal surgeries exce pt for a vasectomy in January, and no family history of testicular cancer. - Pain is localized to the right testicl e, with slight swelling but no nodules, and no issues with urination or erections. - He is with one partner. - Had a vasectomy with no complications. - He denies fever, chills, abd pain, pen ile pain, masses, hernias, discharge, dysuria, or hematuria. Physical Exam General: Cooperative, healthy appearing, comfortable, no acute distress and well developed Orientation: Patient oriented x3 Limitations: No limitations Respiratory: Normal respiratory effort and able to speak in complete sentences. Clear to auscultation bilaterally. No w/r/r noted. Cardiovascular: Regular rate and rhythm. Normal S1 and S2. No m/r/g noted. GI: Normal to inspection. Soft to palpation and nontender. No guarding noted. No hernia or masses noted. Negative CVA tenderness noted. : No deformity noted. No swelling noted. TTP of the right testicle. No masses noted. No TTP of the epididymis. No inguinal lymphadenopathy noted. Skin: No rashes or lesions noted. Patient was informed and verbally consented to the use of an ambient scribe for clinic note documentation during this visit. [facility] Surgical History History of lung surgery Family History Mother No problems noted. Father No problems noted. 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 Cognitive needs: No Hearing needs: No Vision needs: Yes Review of Systems Const All systems reviewed & are unremarkable except as noted in HPI and below Physical Exam Vital Signs: Last Vital Signs Temp 98.3 F 06/18/25 12:28 Pulse 76 06/18/25 12:28 BP 104/62 06/18/25 12:28 Pulse Ox 100 06/18/25 12:28 Oxygen Delivery Method Room Air 06/18/25 12:28 BMI result Body Mass Index 34.4 Assessment & Plan Assessment & Plan (1) Right testicular pain: Code(s): N50.811 - Right testicular pain Plan Most likely testicular torsion vs epididymitis vs hydrocele vs mass vs hernia plan - An ultrasound of the scrotum was ordered to evaluate for possible torsion, hernia, or cyst. - will order urine tests - The patient was advised to avoid heavy lifting until further evaluation. - Follow-up was recommended based on ultrasound findings. Orders: Orders US scrotum doppler Today N50.811 - Right testicular pain CT NG by PCR Urine Today N50.811 - Right testicular pain Coding Level of Care Code Est Pt Level 4 (41539) Diagnoses Right testicular pain N50.811
--- OUTSIDE RECORDS SUMMARY | 2025-06-18 16:01 | XMS_ITS | Encounter Summary ---
Author Organization [facility] Address [address] [place] [address] Phone Care Team Providers Care Salesperson Burial Plots Name Role Phone Rory Mercer MD Primary Care Provider [phone] Encounter Details Date Type Department Care Team (Late st Contact Info) Description 12/04/2010 Conversion Encounter [facility] [address] [place] [address] Social History Tobacco Use Types Packs/Day Years [...] on filedocumented in this encounter Care Teams Salesperson Burial Plots Relationship Specialty Start Date End Date Rory Mercer MD [address] [place] [address] PCP - General 11/30/17 documented as of this encounter
--- OUTSIDE RECORDS SUMMARY | 2025-06-18 16:01 | XMS_ITS | Clinical Summary ---
Author Organization [facility] Address [address] [place] [id number] Phone Care Team Providers Care Boat Driver Name Role Phone Rory Mercer MD Primary Care Provider [phone] Allergies Active Allergy Reactions Criticality Noted Date [...] Asthma (493.00) Onset: 11/22/2016 Added by: Rory Mecrer Sebaceous cyst 08/30/2016 Overview (12/29/2017): Sebaceous cyst [...] 07/20/2000, Additional history exists Influenza Vaccines (#1) 2025 COVID-19 Vaccine ( - 2024- season) 2025 03/03/2021, 02/09/2021 HIB Vaccines Completed 04/11/2000, 01/2000, [...] patient's age to complete this topic Insurance [facility] Care Teams Boat Driver Relationship Specialty Start Date End Date Rory Mercer MD [facility] [place] [address] PCP - General 11/30/17
== END 2025-06-18 13:43 | disposition home or self-care (01) ==
PROVIDERS: PCP Nurse Practitioner Family; Visit Provider Physician Assistant Medical
DX: N50.811 Right testicular pain (principal)

== ENCOUNTER 2025-06-18 13:02 | Outpatient (REF) | payer OTHER, SELFPAY ==
--- NOTE | ~2025-06-18 | US_ITS ---
EXAMINATION: US SCROTUM CLINICAL INFORMATION: Right testicular pain, rule out torsion.. COMPARISON: None available. TECHNIQUE: A sonogram of the scrotum was performed assessing fisher-scale appearance and color Doppler flow. Spectral Doppler analysis of the arterial and venous flow were performed in the testes bilaterally. FINDINGS: RIGHT: Right testicle measures 4.5 x 2.5 x 3.8 cm, volume 22.5 mL. No focal testicular parenchymal lesions are visualized. Spectral Doppler analysis of the arterial and venous flow is normal in the right testis. Right epididymal head is normal in size. There is a small right hydrocele with layering specular debris. There is a small varicocele. Right epididymal Doppler flow is increased. LEFT: Left testicle measures 4.5 x 2.6 x 3.2 cm, volume 19.3 mL. No focal testicular parenchymal lesions are visualized. Spectral Doppler analysis of the arterial and venous flow is normal in the left testis. Left epididymal head is normal in size. There is a minimal left hydrocele, probably within the realm of normal variation. There is a small varicocele. Left epididymal Doppler flow is normal. US/US scrotum doppler IMPRESSION: 1. There is no evidence of testicular torsion. 2. There are findings of right epididymitis. 3. There is a right small hydrocele with associated mild specular debris. Electronically signed by: Vj Goldberg MD 06/18/2025 03:24 PM JAYMIE
--- NOTE | ~2025-06-18 | US_ITS ---
EXAMINATION: US SCROTUM CLINICAL INFORMATION: Right testicular pain, rule out torsion.. COMPARISON: None available. TECHNIQUE: A sonogram of the scrotum was performed assessing fisher-scale appearance and color Doppler flow. Spectral Doppler analysis of the arterial and venous flow were performed in the testes bilaterally. FINDINGS: RIGHT: Right testicle measures 4.5 x 2.5 x 3.8 cm, volume 22.5 mL. No focal testicular parenchymal lesions are visualized. Spectral Doppler analysis of the arterial and venous flow is normal in the right testis. Right epididymal head is normal in size. There is a small right hydrocele with layering specular debris. There is a small varicocele. Right epididymal Doppler flow is increased. LEFT: Left testicle measures 4.5 x 2.6 x 3.2 cm, volume 19.3 mL. No focal testicular parenchymal lesions are visualized. Spectral Doppler analysis of the arterial and venous flow is normal in the left testis. Left epididymal head is normal in size. There is a minimal left hydrocele, probably within the realm of normal variation. There is a small varicocele. Left epididymal Doppler flow is normal. US/US scrotum IMPRESSION: 1. There is no evidence of testicular torsion. 2. There are findings of right epididymitis. 3. There is a right small hydrocele with associated mild specular debris. Electronically signed by: Vj Goldberg MD 06/18/2025 03:24 PM JAYMIE
== END 2025-06-18 13:03 | disposition home or self-care (01) ==
LOC: HO.HMGCX 13:02
PROVIDERS: Visit Provider Physician Assistant Medical
DX: N50.811 Right testicular pain (principal)
CPT/HCPCS: 76870; 93975

== ENCOUNTER → 2025-06-18 14:09 | Outpatient (BNV) | payer OTHER, SELFPAY | PROVIDERS: Visit Provider Radiology Diagnostic Radiology | DX: N45.1 Epididymitis (principal); N43.3 Hydrocele, unspecified | CPT/HCPCS: 76870; 93975 ==

== ENCOUNTER 2025-07-01 06:39 | Outpatient (AMB) | payer OTHER, SELFPAY ==
--- OUTSIDE RECORDS SUMMARY | 2025-07-01 06:49 | XMS_ITS | Clinical Summary ---
Author Organization [facility] Address [address] [place] [id number] Phone Care Team Providers Care Front Of House Manager Name Role Phone Rory Mercer MD Primary Care Provider [phone] Allergies Active Allergy Reactions Criticality Noted Date [...] patient's age to complete this topic [facility] Care Teams Front Of House Manager Relationship Specialty Start Date End Date Rory Mercer MD [facility] [place] [address] PCP - General 11/30/17
--- OUTSIDE RECORDS SUMMARY | 2025-07-01 06:49 | XMS_ITS | Encounter Summary ---
Author Organization [facility] Address [address] [place] [id number] Phone Care Team Providers Care Mycology Teacher Name Role Phone Rory Mercer MD Primary Care Provider [phone] Encounter Details Date Type Department Care Team (Late st Contact Info) Description 12/04/2010 Conversion Encounter [facility] [address] [place] [address] Social History Tobacco Use Types Packs/Day Years [...] on filedocumented in this encounter Care Teams Mycology Teacher Relationship Specialty Start Date End Date Rory Mercer MD [address] [place] [address] PCP - General 11/30/17 documented as of this encounter
--- NOTE | 2025-07-01 07:40 | A.OFFPC_ITS ---
Intake Visit Reasons: f/u from walkin Allergies No Known Allergies Allergy (Verified 07/01/25 07:43) Medication List - Last Reconciled 07/01/25 by LAY Watkins semaglutide (weight loss) 2.4 mg (0.75 mL) subcut QWEEK Tobacco use date assessed: 08/16/24 Dental Screening Dental Screen Date: 08/16/24 [facility] Surgical History History of lung surgery Family History Mother No problems noted. Father No problems noted. 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 Cognitive needs: No Hearing needs: No Vision needs: Yes Questionnaire Thrive Questionnaire Date Thrive assessed: 08/16/24 I am a: Patient What is your living situation today?: I have a steady place to live Within the past 12 months, did the food you bought not last and you didn't have the money to get more?: Never true Within the past 12 months, did you worry whether your food would run out before you got money to buy more?: Never true Do you have trouble paying for medicines?: No Do you have trouble getting transportation to medical appointments?: No Do you have trouble paying your heating and electricity bill?: No Do you have trouble taking care of your child, family member or friend?: No Do you have trouble with day-to-day activities such as bathing, preparing meals, shopping, managing finances, etc.?: No Are you currently unemployed and looking for a job?: No Are you interested in more education?: No Please select the resources that you would like help with: None Currently or been in a relationship where the following occur: No concerns reported THRIVE Score: 0 BUSTER-7 AMB Questionnaire BUSTER-7 Date BUSTER - 7 assessed: 01/23/25 Source: Developed by Drs. Armand Miller, Mayuri Candelario, Matt Roach and colleagues, with an educational buddy from [employer]. Physical exam (Primary Care) Tobacco/Smoking Status: Tobacco use Status Tobacco use date assessed 08/16/24 08/16/24 16:13 Patient Tobacco Use Status Never used Tobacco 06/18/25 12:34 e-Cigarette/Vaping Use Never Used 08/16/24 16:06 Thrive Assessment: Date of Thrive Assessment Date Thrive assessed 08/16/24 08/16/24 16:06 Currently or been in a relationship where the following occur: No concerns reported Telehealth Telehealth Telehealth Platform: [facility] Location of provider rendering services: practice address Location of patient: address on file Patient Identification confirmed using: Name, : Yes Telehealth method: video Patient verbally consented to treatment: Yes Patient verbally consented to billing insurance company: Yes Patient informed of any privacy concerns related to visit: Yes Minutes spent on Phone/Video with Pt.: 12 Coding Level of Care Code Tele Est Pt Level 3 (23192) Diagnoses Right testicular pain N50.811 Assessment & Plan Assessment & Plan (1) Right testicular pain: Code(s): N50.811 - Right testicular pain Category: Medical Plan .
== END 2025-07-01 09:53 | disposition home or self-care (01) ==
LOC: HO.HMCC 06:40
PROVIDERS: PCP Nurse Practitioner Family; Visit Provider Nurse Practitioner Family
DX: N50.811 Right testicular pain (principal)